=== PATIENT | male | born 1975 | race Caucasian/White ===

== ENCOUNTER 2018-10-13 17:52 | Inpatient (IN) | payer MEDICARE, MEDICAID ==
[~2018-10-13] VITALS: Ht 154.9 cm; Wt 79.5 kg
[~2018-10-13 17:52] MED LIST: DIVA500T15; FENO135C4; FLUV100T3; FLUV50TA3; HYDR-3729 PO; LISI10TA2; METF500T8; RISP0.5T3; SIMV5TAB6; SITA100T12; SULF1TAB38 PO; TOPI50TA13; TRAZ-190
--- OUTSIDE RECORDS SUMMARY | 2018-10-13 17:55 | XMS REPORT | Continuity of Care Document ---
Author Author [facility] of [facility] Address Unknown Phone Unavailable Allergies There is no data. Medications There is no data. 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 Results There is no data. Encounters ACCT No. Visit Date/Time Discharge Status Pt. Type Provider Facility Loc./Unit Complaint [id number] 11/07/2014 15:35:00 11/07/2014 23:59:59 [facility] Outpatient BRIAN CASTAÑEDA APRN [id number] 09/16/2014 11:22:00 09/16/2014 23:59:59 [facility] Outpatient BRIAN CASTAÑEDA APRN
[2018-10-13] MEDS ORDERED: PIPERACILLIN SODIUM/TAZOBACTAM 4.5 GM in NS (IVPB) 100 ML IV ONE (18:15)
[2018-10-13] MEDS ORDERED: NS IV 1000 ML 2,000 ML IV ONE (18:15)
[2018-10-13] MEDS ORDERED: ASPIRIN 81 MG CHEW (CHILDREN'S ASA) PO ONE (18:15)
--- NOTE | 2018-10-13 18:22 | ED General ---
General Stated Complaint: LETHARGIC/WEAK Source of Information: Patient, Caregiver, Old Records Exam Limitations: Physical Impairments History of Present Illness Date Seen by Provider: Oct 13, 2018 Time Seen by Provider: 18:00 Initial Comments The patient presents to ER by private conveyance with his house caregiver because they noticed today he was not acting himself is been very tired and wanting to sleep all day and at dinner was dropping his utensils. He's not been acting sick lately nor there any sick contacts in the home where he lives. He does have a history of being functionally destined nonverbal. The has a guardian who the caregivers trying to contact. They deny that he's been having any nausea vomiting diarrhea fevers chills sweats pain of any sort or decreased appetite until this evening. He's not been having a cough, runny nose rash or other concern that they're aware of other than his acting weak and tired. He has a history of hypertension and some psychiatric medications that he takes. They state he's been taking his medications appropriately since they deliver them to him. No known family history as they don't do anything about his family. No history of heart attack, stroke, or recent antibiotic use. They noticed the last year he's lost some weight but they are not sure how much. Last bowel movement was just prior to arrival. Allergies and Home Medications Allergies Coded Allergies: No Known Drug Allergies (Unverified , 10/03/11) Home Medications Hydrocodone/Acetaminophen 1 Each Tablet, 1-2 EACH PO Q4H Prescribed by: MARIANNE REYES on 05/26/16 1002 Patient Home Medication List Home Medication List Reviewed: Yes Review of Systems Review of Systems Constitutional: see HPI (history of present illness given by caregivers as the patient is nonverbal); No chills, No diaphoresis, No fever, No malaise EENTM: No ear discharge, No ear pain, No eye pain, No tearing, No dental problems, No hoarseness, No nose congestion, No throat pain Respiratory: No cough, No short of breath, No wheezing Cardiovascular: No chest pain, No edema, No Hx of Intervention, No syncope, No vascular heart diseas Gastrointestinal: No abdominal pain, No constipation, No diarrhea, No vomiting Genitourinary: No dysuria, No frequency, No hematuria Musculoskeletal: No back pain, No joint pain Skin: No pruritus, No rash Psychiatric/Neurological: Denies Headache, Denies Numbness Past Mfjmtmu-Toevur-Fqsdjr Hx Patient Social History Alcohol Use: Denies Use Recreational Drug Use: No Smoking Status: Never a Smoker Recent Foreign Travel: No Contact w/Someone Who Travel: No Seasonal Allergies Seasonal Allergies: No Past Medical History Gall Bladder Disease Hearing Impairment: Deaf Physical Exam-Suspected Sepsis Physical Exam Vital Signs Vital Signs - First Documented 10/13/18 18:04 Temp 95.9 Pulse 57 Resp 20 B/P (MAP) 82/53 (63) Pulse Ox 94 O2 Delivery Room Air Capillary Refill : Height, Weight, BMI Height: 5'1.00" Weight: 290lbs. 0.0oz. 131.952025au; 48.25 BMI Method:Stated General Appearance: Mild Distress, Obese Eyes: Bilateral Eye Normal Inspection, Bilateral Eye PERRL, Bilateral Eye EOMI HEENT: PERRL/EOMI, TMs Normal, Normal ENT Inspection, Pharynx Normal, Moist Mucous Membranes Neck: Full Range of Motion, Normal Inspection, Non Tender Respiratory: Chest Non Tender, Lungs Clear, Normal Breath Sounds, No Accessory Muscle Use, No Respiratory Distress Cardiovascular: Regular Rate, Rhythm, No Edema, Normal Peripheral Pulses Gastrointestinal: Normal Bowel Sounds, No Organomegaly, Non Tender, Soft Extremity: Normal Capillary Refill, Normal Inspection Neurologic/Psychiatric: Alert, Normal Mood/Affect (placid), Other (nonverbal but cooperative) Skin: normal color, warm/dry Focused Exam Lactate Level 10/13/18 18:37: Lactic Acid Level 0.86 Lactic Acid Level Laboratory Tests Test 10/13/18 18:37 Lactic Acid Level 0.86 MMOL/L (0.50-2.00) Progress/Results/Core Measures Suspected Sepsis SIRS Temperature: Pulse: Respiratory Rate: Laboratory Tests 10/13/18 18:37: White Blood Count 9.8 Blood Pressure / Mean: 10/13/18 18:37: Lactic Acid Level 0.86 Laboratory Tests 10/13/18 18:37: Creatinine 0.75, INR Comment 1.0, Platelet Count 163, Total Bilirubin 0.2 Results/Orders Lab Results Laboratory Tests Test 10/13/18 18:37 10/13/18 18:52 10/13/18 19:41 Range/Units White Blood Count 9.8 4.3-11.0 10^3/uL Red Blood Count 4.18 L 4.35-5.85 10^6/uL Hemoglobin 13.1 L 13.3-17.7 G/DL Hematocrit 38 L 40-54 % Mean Corpuscular Volume 92 80-99 FL Mean Corpuscular Hemoglobin 31 25-34 PG Mean Corpuscular Hemoglobin Concent 34 32-36 G/DL Red Cell Distribution Width 12.1 10.0-14.5 % Platelet Count 163 130-400 10^3/uL Mean Platelet Volume 9.8 7.4-10.4 FL Neutrophils (%) (Auto) 44 42-75 % Lymphocytes (%) (Auto) 43 12-44 % Monocytes (%) (Auto) 7 0-12 % Eosinophils (%) (Auto) 7 0-10 % Basophils (%) (Auto) 1 0-10 % Neutrophils # (Auto) 4.3 1.8-7.8 X 10^3 Lymphocytes # (Auto) 4.2 H 1.0-4.0 X 10^3 Monocytes # (Auto) 0.7 0.0-1.0 X 10^3 Eosinophils # (Auto) 0.7 H 0.0-0.3 10^3/uL Basophils # (Auto) 0.1 0.0-0.1 10^3/uL Prothrombin Time 13.3 12.2-14.7 SEC INR Comment 1.0 0.8-1.4 Activated Partial Thromboplast Time 34 24-35 SEC Sodium Level 139 135-145 MMOL/L Potassium Level 3.9 3.6-5.0 MMOL/L Chloride Level 110 H 98-107 MMOL/L Carbon Dioxide Level 21 21-32 MMOL/L Anion Gap 8 5-14 MMOL/L Blood Urea Nitrogen 23 H 7-18 MG/DL Creatinine 0.75 0.60-1.30 MG/DL Estimat Glomerular Filtration Rate > 60 BUN/Creatinine Ratio 31 Glucose Level 129 H 70-105 MG/DL Lactic Acid Level 0.86 0.50-2.00 MMOL/L Calcium Level 8.7 8.5-10.1 MG/DL Corrected Calcium 9.0 8.5-10.1 MG/DL Magnesium Level 2.0 1.8-2.4 MG/DL Total Bilirubin 0.2 0.1-1.0 MG/DL Aspartate Amino Transf (AST/SGOT) 23 5-34 U/L Alanine Aminotransferase (ALT/SGPT) 24 0-55 U/L Alkaline Phosphatase 66 40-136 U/L Myoglobin 28.8 10.0-92.0 NG/ML Troponin I < 0.30 <0.30 NG/ML Total Protein 6.1 L 6.4-8.2 GM/DL Albumin 3.6 3.2-4.5 GM/DL Glucometer 104 70-110 MG/DL Urine Color YELLOW Urine Clarity CLEAR Urine pH 6.5 5-9 Urine Specific [place] 1.010 L 1.016-1.022 Urine Protein NEGATIVE NEGATIVE Urine Glucose (UA) NEGATIVE NEGATIVE Urine Ketones NEGATIVE NEGATIVE Urine Nitrite NEGATIVE NEGATIVE Urine Bilirubin NEGATIVE NEGATIVE Urine Urobilinogen NORMAL NORMAL MG/DL Urine Leukocyte Esterase NEGATIVE NEGATIVE Urine RBC (Auto) NEGATIVE NEGATIVE Urine RBC NONE /HPF Urine WBC NONE /HPF Urine Crystals NONE /LPF Urine Bacteria NEGATIVE /HPF Urine Casts NONE /LPF Urine Mucus NEGATIVE /LPF Urine Culture Indicated NO Micro Results Microbiology 10/13/18 Influenza Types A,B Antigen (PEPITO) - Final, Complete My Orders Orders - OSMAN AGUIRRE Cbc With Automated Diff (10/13/18 18:09) Comprehensive Metabolic Panel (10/13/18 18:09) Blood Culture (10/13/18 18:09) Sputum Culture (10/13/18 18:09) Urinalysis (10/13/18 18:09) Urine Culture (10/13/18 18:09) Protime With Inr (10/13/18 18:09) Partial Thromboplastin Time (10/13/18 18:09) Saline Lock/Iv-Start (10/13/18 18:09) Saline Lock/Iv-Start (10/13/18 18:09) Vital Signs Adult Sepsis Patie Q15M (10/13/18 18:09) O2 (10/13/18 18:09) Remove Rings In Anticipation O (10/13/18 18:09) Lactic Acid Analyzer (10/13/18 18:09) Influenza A And B Antigens (10/13/18 18:09) Ns Iv 1000 Ml (Sodium Chloride 0.9%) (10/13/18 18:15) Piperacillin Sodium/Tazobactam (Zosyn Vi (10/13/18 18:15) Ekg Tracing (10/13/18 18:09) Monitor-Rhythm Ecg Trace Only (10/13/18 18:09) Aspirin Chewable Tablet (Baby Aspirin Ch (10/13/18 18:15) Chest Pa/Lat (2 View) (10/13/18 18:09) Accucheck Stat ONCE (10/13/18 18:50) Cardiac Profile 1 (10/13/18 18:37) Magnesium (10/13/18 18:37) Myoglobin Serum (10/13/18 18:37) Abdomen/Kub 1view (10/13/18 20:16) Medications Given in ED Current Medications Medications Dose Ordered Sig/Timbo Route Start Time Stop Time Status Last Admin Dose Admin Aspirin 324 mg ONCE ONCE PO 10/13/18 18:15 10/13/18 18:17 DC 10/13/18 18:30 324 MG Piperacillin Sod/ Tazobactam Sod 4.5 gm/Sodium Chloride 100 ml @ 200 mls/hr ONCE ONCE IV 10/13/18 18:15 10/13/18 18:44 DC 10/13/18 19:59 200 MLS/HR Sodium Chloride 2,000 ml @ 2,000 mls/hr ONCE ONCE IV 10/13/18 18:15 10/13/18 19:14 DC 10/13/18 18:30 2,000 MLS/HR Vital Signs/I&O 10/13/18 10/13/18 18:04 20:03 Temp 95.9 95.4 Pulse 57 44 Resp 20 16 B/P (MAP) 82/53 (63) 92/60 Pulse Ox 94 95 O2 Delivery Room Air Room Air Capillary Refill : Progress Note #1: Time: 18:22 Progress Note Not much history to go on; the patient is found to be hypotensive initially with a systolic of 85 however blood pressure was noted to be 129/96 after obtaining flu swab and IVs which irritated the patient. His heart rates was in the 50s and he is not on a beta richie, digoxin etc. so it could be artificial hypotension. He got up and walked over got in the chair to go to radiology with one-person standby assist. His temperature is low sonwe are still going to treat it like sepsis until we see otherwise. He has not started his IV fluids yet so when he gets back from radiology we will recheck his blood pressure couple times and if it's not hypotensive then this would not represent shock. We 'll also considering possibility of cardiac so we obtain an EKG we'll give him 324 mg of aspirin and get a troponin. He has not intimated any kind of chest pain rather it was merely the presence of hypotension with no good history that prompted this workup. Using an ideal body weight of 150 pounds and put him right at 2 L of saline for 30 mils per kilogram. He has no edema, JVD or orthopnea and clinically he does appear to be mildly dry but not excessively so. 2016 Dr. 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 His medical reconciliation does not include any insulin. No other surgical history. No smoking or alcohol use. Progress Note #2: Time: 18:35 Progress Note Repeat blood pressure still demonstrate hypotension. His EKG today looks okay but he does have a history of possible atrial flutter seen on an EKG couple years ago. He showing no neurologic symptoms but is difficult to do a complete examination given his mutism. He has no drooping of his face or difficulty with one side of his body. The other. Strength and motor are equal bilateral. Progress Note #3: Time: 19:27 Progress Note Bedside blood sugar unremarkable 104. Heart rate still remains low in the mid 40s but his blood pressure has improved significantly by about 20 mmHg systolic the right now 107/67. Could be a cardiac source of his hypotension. Troponin and other lab work unrevealing. By the time he gets his first 2 L in if he still not able to produce a urine then we'll collect a straight catheter specimen. Progress Note #4: Time: 20:13 Progress Note Patient's blood pressure is 116/93 and dental responded to fluid bolus challenge. He doesn't appear to be in any kind of distress right now on reexamination. On focused exam at this time is markedly improved. The I do think it be ugalde to hold onto him in the hospital do some further workup to find out why he is having inappropriate bradycardia and hypertension if it was from an infectious source or if there is a cardiogenic source of his problems today. Would also consider the possibility he may have ingested something but I as of yet have not been able to discern by history what that might be. I would continue the antibiotics until we were certain there is no infectious source of his symptoms. He does have a history of constipation so we will obtain a KUB 1 view just to see if he has a large stool load. ECG Initial ECG Impression Date: Oct 13, 2018 Initial ECG Impression Time: 18:09 Initial ECG Rate: 70 Initial ECG Rhythm: Normal Sinus Initial ECG Intervals: Normal Initial ECG Impression: Normal, Nonspecific Changes Initial ECG Comparisson: Changed Comment Previous EKG from 2016 may have shown atrial flutter versus artifact. Today he is in a normal sinus rhythm without any ST changes. Diagnostic Imaging Diagonstic Imaging: Xray Plain Films/CT/US/NM/MRI: chest (2v) Comments [facility]. [place], [place] NAME: SOREN BRAND [facility] REC#: [id number] PT STATUS: REG ER : 1975 PHYSICIAN: OSMAN AGUIRRE MD ADMIT DATE: 10/13/18/ER Draft Date of Exam:10/13/18 CHEST PA/LAT (2 VIEW) INDICATION: Lethargic. COMPARISON: 09/13/2016. TECHNIQUE: Two radiographs of the chest dated October 13, 2018. FINDINGS: The cardiac silhouette is within normal limits in size. No significant pulmonary vascular congestion. The lungs are clear of focal pulmonary opacity. No pleural effusion. No pneumothorax. Surgical clips are within the right upper quadrant of the abdomen. No acute osseous abnormality. IMPRESSION: Stable examination without acute cardiopulmonary abnormality. Dictated on workstation # [id number] Dict: 10/13/181945 Trans: 10/13/181950 [facility] [id number] Interpreted by: TIARA CORTEZ MD Electronically signed by: Reviewed: Reviewed by Me Diagonstic Imaging: Xray Plain Films/CT/US/NM/MRI: abdomen (1 view KUB) Comments Unremarkable bowel gas pattern. Reviewed: Reviewed by Me Departure Communication (Admissions) Time/Spoke to Admitting Phy: 20:30 Dr Cortes; discussed case lab EKG troponin and x-rays. She would like the patient on cardiac stepdown with telemetry and she agrees to accept him. Time/Spoke to Consulting Phy: 20:35 Dr. Schafer; discussed case lab imaging findings he agrees to consult. Impression Primary Impression: Hypotension Qualified Codes: I95.0 - Idiopathic hypotension Additional Impression: Bradycardia with 41-50 beats per minute Disposition: ADMITTED INPATIENT Condition: Stable Admissions Decision to Admit Reason: Admit from ER (General) Decision to Admit/Date: Oct 13, 2018 Time/Decision to Admit Time: 20:30 Departure-Patient Inst. Referrals: ROSEMARIE HURD DO (PCP/Family) Primary Care Physician Copy Copies To 1: ROSEMARIE HURD TITUS J Oct 13, 2018 18:22
[2018-10-13 18:45] LABS: BASOPHILS # (AUTO) 0.1 10^3/uL (0.0-0.1); BASOPHILS % (AUTO) 1 % (0-10); EOSINOPHILS # (AUTO) 0.7 10^3/uL (0.0-0.3); EOSINOPHILS % (AUTO) 7 % (0-10); HEMATOCRIT 38 % (40-54); HEMOGLOBIN 13.1 G/DL (13.3-17.7); LYMPHOCYTES # (AUTO) 4.2 X 10^3 (1.0-4.0); LYMPHOCYTES % (AUTO) 43 % (12-44); MEAN CORPUSCULAR HEMOGLOBIN 31 PG (25-34); MEAN CORPUSCULAR HGB CONC 34 G/DL (32-36); MEAN CORPUSCULAR VOLUME 92 FL (80-99); MEAN PLATELET VOLUME 9.8 FL (7.4-10.4); MONOCYTES # (AUTO) 0.7 X 10^3 (0.0-1.0); MONOCYTES % (AUTO) 7 % (0-12); NEUTROPHILS # (AUTO) 4.3 X 10^3 (1.8-7.8); NEUTROPHILS % (AUTO) 44 % (42-75); PLATELET COUNT 163 10^3/uL (130-400); RED BLOOD COUNT 4.18 10^6/uL (4.35-5.85); RED CELL DISTRIBUTION WIDTH 12.1 % (10.0-14.5); WHITE BLOOD COUNT 9.8 10^3/uL (4.3-11.0)
[2018-10-13 19:06] LABS: ALANINE AMINOTRANSFERASE 24 U/L (0-55); ALBUMIN 3.6 GM/DL (3.2-4.5); ALKALINE PHOSPHATASE 66 U/L (40-136); BILIRUBIN,TOTAL 0.2 MG/DL (0.1-1.0); BUN/CREATININE RATIO 31; CALCIUM 8.7 MG/DL (8.5-10.1); CARBON DIOXIDE 21 MMOL/L (21-32); CHLORIDE 110 MMOL/L (98-107); CREATININE SERUM 0.75 MG/DL (0.60-1.30); GFR ESTIMATED > 60; GLUCOSE 129 MG/DL (70-105); POTASSIUM 3.9 MMOL/L (3.6-5.0); SODIUM 139 MMOL/L (135-145); TOTAL PROTEIN 6.1 GM/DL (6.4-8.2)
[2018-10-13 19:10] LABS: PROTHROMBIN TIME PATIENT 13.3 SEC (12.2-14.7)
[2018-10-13 19:13] LABS: MYOGLOBIN SERUM 28.8 NG/ML (10.0-92.0)
--- NOTE | 2018-10-13 19:52 | Diagnostic Imaging Report ---
INDICATION: Lethargic. COMPARISON: 09/13/2016. TECHNIQUE: Two radiographs of the chest dated October 13, 2018. FINDINGS: The cardiac silhouette is within normal limits in size. No significant pulmonary vascular congestion. The lungs are clear of focal pulmonary opacity. No pleural effusion. No pneumothorax. Surgical clips are within the right upper quadrant of the abdomen. No acute osseous abnormality. IMPRESSION: Stable examination without acute cardiopulmonary abnormality. Dictated by: Dictated on workstation # [id number]
[2018-10-13 20:03] LABS: BACTERIA,URINE NEGATIVE /HPF; BILIRUBIN,URINE NEGATIVE (NEGATIVE); CLARITY,URINE CLEAR; COLOR,URINE YELLOW; GLUCOSE, URINE (UA) NEGATIVE (NEGATIVE); KETONES,URINE NEGATIVE (NEGATIVE); LEUKOCYTE ESTERASE ,URINE NEGATIVE (NEGATIVE); NITRITE,URINE NEGATIVE (NEGATIVE); PH,URINE 6.5 (5-9); PROTEIN,URINE NEGATIVE (NEGATIVE); UROBILINOGEN,URINE NORMAL (NORMAL)
--- OUTSIDE RECORDS SUMMARY | 2018-10-13 21:14 | XMS REPORT | Continuity of Care Document ---
Author Author [facility] Address Unknown Phone Unavailable Allergies There [...] BRIAN CASTAÑEDA APRN V58.69 MEDICATION HIGH RISK Procedures There is no data. Results There is no data. Encounters ACCT No. Visit Date/Time Discharge Status Pt. Type Provider Facility Loc./Unit Complaint [id number] 11/07/2014 15:35:00 11/07/2014 23:59:59 [facility] Outpatient BRIAN CASTAÑEDA APRN [id number] 09/16/2014 11:22:00 09/16/2014 23:59:59 [facility] Outpatient BRIAN CASTAÑEDA APRN
[2018-10-13 22:08] VITALS: BP 124/94
[2018-10-13] MEDS ORDERED: IBUPROFEN 800 MG (MOTRIN) TAB PO PRN (22:30)
[2018-10-13] MEDS ORDERED: ACETAMINOPHEN 500 MG TAB (TYLENOL) PO PRN (22:30)
[2018-10-13] MEDS ORDERED: ONDANSETRON 4 MG/2 ML (SDV) Z0FRAN IV PRN (22:30)
[2018-10-13] MEDS: NS IV 1000 ML 1,000 ML IV SCH (22:43)
[2018-10-13 23:00] VITALS: BP 107/80
--- NOTE | 2018-10-13 23:01 | Diagnostic Imaging Report ---
INDICATION: Lethargic COMPARISON: None available. TECHNIQUE: Single radiograph of the abdomen dated 10/13/2018. FINDINGS: Surgical clips are present within the right upper quadrant of the abdomen. Gas and stool is identified throughout the colon. No dilated loops of small bowel. No differential air-fluid levels. No free air. [place] left curvature of the spine. No acute osseous abnormality. IMPRESSION: No acute abnormality. Dictated by: Dictated on workstation # [id number]
[2018-10-14] VITALS: BP 106/55
[2018-10-14] MEDS ORDERED: diphenhydrAMINE 25 MG TAB (BENADRYL) PO ONE ×2 (01:49→02:00)
[2018-10-14] MEDS ORDERED: PIPERACILLIN/TAZO 4.5 GM VIAL (ZOSYN) IV ONE (01:58)
[2018-10-14] MEDS ORDERED: NS (IVPB) 100 ML ONE (01:58)
[2018-10-14] MEDS: NS IV 1000 ML 1,000 ML IV SCH ×2 (01:59→05:58)
[2018-10-14] MEDS: PIPERACILLIN SODIUM/TAZOBACTAM 4.5 GM in NS (IVPB) 100 ML IV SCH ×2 (02:10→10:24)
[2018-10-14 04:00] VITALS: BP 109/61
[2018-10-14 04:11] LABS: BASOPHILS % (AUTO) 1 % (0-10); EOSINOPHILS # (AUTO) 0.6 10^3/uL (0.0-0.3); EOSINOPHILS % (AUTO) 7 % (0-10); HEMATOCRIT 35 % (40-54); HEMOGLOBIN 11.8 G/DL (13.3-17.7); LYMPHOCYTES # (AUTO) 3.6 X 10^3 (1.0-4.0); LYMPHOCYTES % (AUTO) 42 % (12-44); MEAN CORPUSCULAR HEMOGLOBIN 31 PG (25-34); MEAN CORPUSCULAR HGB CONC 33 G/DL (32-36); MEAN CORPUSCULAR VOLUME 93 FL (80-99); MEAN PLATELET VOLUME 9.9 FL (7.4-10.4); MONOCYTES % (AUTO) 11 % (0-12); NEUTROPHILS # (AUTO) 3.6 X 10^3 (1.8-7.8); NEUTROPHILS % (AUTO) 40 % (42-75); PLATELET COUNT 121 10^3/uL (130-400); RED BLOOD COUNT 3.78 10^6/uL (4.35-5.85); WHITE BLOOD COUNT 8.8 10^3/uL (4.3-11.0)
[2018-10-14 04:44] LABS: BUN/CREATININE RATIO 26; CALCIUM 8.2 MG/DL (8.5-10.1); CARBON DIOXIDE 19 MMOL/L (21-32); CHLORIDE 118 MMOL/L (98-107); GFR ESTIMATED > 60; GLUCOSE 92 MG/DL (70-105); SODIUM 145 MMOL/L (135-145)
[2018-10-14 07:00] VITALS: BP_SYST 114; BP_SYST 91; BP_DIAS 54; BP_DIAS 63
[2018-10-14 08:00] VITALS: BP 114/54
--- NOTE | 2018-10-14 09:59 | Consultation-Cardiology ---
HPI-Cardiology Cardiology Consultation Date of Consultation 10/14/18 Date of Admission Time Seen by Provider: 09:54 Indication: bradycardia, hypotension HPI 43 years old gentleman with history of hypertension, hyperlipidemia, patient suffered from deafness, unable to provide any history. It was reported by his caregiver that he has been tired and having no energy, did not eat well. Brought to the hospital and noted to be borderline hypotensive. He is on lisinopril as an outpatient and he received yesterday morning. Overnight he continued to have borderline hypotension, heart rate is in the 50s. Laying down in bed, did not respond properly, unable to provide any history. Home Medications & Allergies Allergies: Coded Allergies: No Known Drug Allergies (Unverified , 10/13/18) Home Medication List Reviewed: Yes SNF-Vfompn-Rfklub Hx Patient Social History Marital Status: single Employed/Student: unemployed Alcohol Use: Denies Use Recreational Drug Use: No Smoking Status: Never a Smoker Recent Foreign Travel: No Recent Infectious Disease Expo: No Physical Abuse Screen: No Sexual Abuse: No Immunizations Up To Date Tetanus Booster (TDap): Unknown Date of Influenza Vaccine: Jul 23, 2018 Past Medical History past medical history as discussed below Review of Systems Constitutional: malaise, weakness, other (unable to provide history due to his current condition) Respiratory: No see HPI, No cough, No dyspnea on exertion, No hemoptysis, No orthopnea, No phlegm, No short of breath, No stridor, No wheezing, No other Cardiovascular: No see HPI, No chest pain, No edema, No Hx of Intervention, No palpitations, No syncope, No vascular heart diseas, No other Gastrointestinal: No RUQ, No LUQ, No RLQ, No LLQ, No see HPI, No abdominal pain , No constipation, No diarrhea, No dysphagia, No hematemesis, No heartburn, No jaundice, No loss of appetite, No melena, No nausea, No vomiting, No other Reviewed Test Results Reviewed Test Results Lab Laboratory Tests Test 10/13/18 18:37 10/13/18 18:52 10/13/18 19:41 10/14/18 03:49 Range/Units White Blood Count 9.8 8.8 4.3-11.0 10^3/uL Red Blood Count 4.18 L 3.78 L 4.35-5.85 10^6/uL Hemoglobin 13.1 L 11.8 L 13.3-17.7 G/DL Hematocrit 38 L 35 L 40-54 % Mean Corpuscular Volume 92 93 80-99 FL Mean Corpuscular Hemoglobin 31 31 25-34 PG Mean Corpuscular Hemoglobin Concent 34 33 32-36 G/DL Red Cell Distribution Width 12.1 12.0 10.0-14.5 % Platelet Count 163 121 L 130-400 10^3/uL Mean Platelet Volume 9.8 9.9 7.4-10.4 FL Neutrophils (%) (Auto) 44 40 L 42-75 % Lymphocytes (%) (Auto) 43 42 12-44 % Monocytes (%) (Auto) 7 11 0-12 % Eosinophils (%) (Auto) 7 7 0-10 % Basophils (%) (Auto) 1 1 0-10 % Neutrophils # (Auto) 4.3 3.6 1.8-7.8 X 10^3 Lymphocytes # (Auto) 4.2 H 3.6 1.0-4.0 X 10^3 Monocytes # (Auto) 0.7 1.0 0.0-1.0 X 10^3 Eosinophils # (Auto) 0.7 H 0.6 H 0.0-0.3 10^3/uL Basophils # (Auto) 0.1 0.0 0.0-0.1 10^3/uL Prothrombin Time 13.3 12.2-14.7 SEC INR Comment 1.0 0.8-1.4 Activated Partial Thromboplast Time 34 24-35 SEC Sodium Level 139 145 135-145 MMOL/L Potassium Level 3.9 4.0 3.6-5.0 MMOL/L Chloride Level 110 H 118 H 98-107 MMOL/L Carbon Dioxide Level 21 19 L 21-32 MMOL/L Anion Gap 8 8 5-14 MMOL/L Blood Urea Nitrogen 23 H 18 7-18 MG/DL Creatinine 0.75 0.70 0.60-1.30 MG/DL Estimat Glomerular Filtration Rate > 60 > 60 BUN/Creatinine Ratio 31 26 Glucose Level 129 H 92 70-105 MG/DL Lactic Acid Level 0.86 0.50-2.00 MMOL/L Calcium Level 8.7 8.2 L 8.5-10.1 MG/DL Corrected Calcium 9.0 8.5-10.1 MG/DL Magnesium Level 2.0 1.8-2.4 MG/DL Total Bilirubin 0.2 0.1-1.0 MG/DL Aspartate Amino Transf (AST/SGOT) 23 5-34 U/L Alanine Aminotransferase (ALT/SGPT) 24 0-55 U/L Alkaline Phosphatase 66 40-136 U/L Myoglobin 28.8 10.0-92.0 NG/ML Troponin I < 0.30 < 0.30 <0.30 NG/ML Total Protein 6.1 L 6.4-8.2 GM/DL Albumin 3.6 3.2-4.5 GM/DL Glucometer 104 70-110 MG/DL Urine Color YELLOW Urine Clarity CLEAR Urine pH 6.5 5-9 Urine Specific [place] 1.010 L 1.016-1.022 Urine Protein NEGATIVE NEGATIVE Urine Glucose (UA) NEGATIVE NEGATIVE Urine Ketones NEGATIVE NEGATIVE Urine Nitrite NEGATIVE NEGATIVE Urine Bilirubin NEGATIVE NEGATIVE Urine Urobilinogen NORMAL NORMAL MG/DL Urine Leukocyte Esterase NEGATIVE NEGATIVE Urine RBC (Auto) NEGATIVE NEGATIVE Urine RBC NONE /HPF Urine WBC NONE /HPF Urine Crystals NONE /LPF Urine Bacteria NEGATIVE /HPF Urine Casts NONE /LPF Urine Mucus NEGATIVE /LPF Urine Culture Indicated NO Physical Exam Vital Signs Vital Signs - First Documented Capillary Refill : Less Than 3 Seconds Height, Weight, BMI Height: 5'1.00" Weight: 175lbs. 6.0oz. 79.792127wk; 32.4 BMI Method:Stated General Appearance: No Apparent Distress, WD/WN HEENT: PERRL/EOMI, TMs Normal, Normal ENT Inspection, Pharynx Normal Neck: Full Range of Motion, Normal Inspection Respiratory: Chest Non Tender, Lungs Clear, Normal Breath Sounds, No Accessory Muscle Use, No Respiratory Distress; No Crackles, No Decreased Breath Sounds, No Expiration, No Inspiration, No Pleural Rub, No Rales, No Respiratory Distress , No Rhonci, No Stridor, No Wheezing, No Other Cardiovascular: Regular Rate, Rhythm, No Edema, No Gallop, No JVD, No Murmur, Normal Peripheral Pulses Gastrointestinal: Normal Bowel Sounds, No Organomegaly Back: Normal Inspection, No CVA Tenderness Extremity: Normal Capillary Refill, Normal Inspection Neurologic/Psychiatric: Alert, Other (unable to provide any history) Skin: Normal Color, Warm/Dry A/P-Cardiology Admission Diagnosis Hypotension Sinus bradycardia Hyperlipidemia Depression Assessment/Plan Hypotension, patient has been on lisinopril, I will discontinue lisinopril for now and monitor blood pressure, received IV fluid and blood pressure is better at this time Sinus bradycardia, asymptomatic, limited exercise ability. Continue to monitor as an outpatient. Hyperlipidemia maintained on simvastatin which might be part spading in his muscle weakness. I will discontinue statin and monitor Depression, anxiety, followed and managed by primary care physician Diabetes mellitus, followed and managed by primary care physician division Generalized weakness and loss of energy probably secondary to his bradycardia and hypotension. At this time it is better. Continue to monitor Deafness, unable to communicate. From cardiology standpoint patient can go back to his assisted facility and followed as an outpatient Clinical Quality Measures DVT/VTE Risk/Contraindication: Risk Factor Score Per Nursin RFS Level Per Nursing on Admit: 2=Moderate NICOLLE ALVAREZ MD Oct 14, 2018 09:59
[2018-10-14 12:09] VITALS: BP 121/62
--- NOTE | 2018-10-14 12:17 | Short Stay Summary-Hospitalist ---
History of Present Illness HPI/Chief Complaint CC: Hypotension with bradycardia HPI: This is a 43-year-old white male severely disabled with mental retardation and deafness of Dr. Ray who is cared for by a caregiver who presents to the hospital with hypotension and bradycardia and not feeling well. He underwent a complete septic workup revealing no evidence of bacterial infection but he was given aggressive IV fluids with improvement of hypotension of systolic of 80 monitored in the ICU overnight and cardiology was consulted. Bradycardia was not significant enough for any type of pursuant of sick sinus syndrome and due to bedridden state there was no indication for aggressive evaluation for that. Lisinopril will be discontinued along with statin for hypotension and muscle weakness symptoms that he had on admission. He has been approved for discharge today. Source: RN/MD, caregiver Exam Limitations: physical impairment Date Seen 10/14/18 Time Seen by a Provider: 11:45 Attending Physician Pita Cortes DO PCP Marcus Ray DO Referring Physician Date of Admission Oct 13, 2018 at 21:00 Home Medications & Allergies Home Medications Reviewed patient Home Medication Reconciliation performed by pharmacy medication reconciliations costume technician and/or nursing. Patients Allergies have been reviewed. Allergies Allergies Coded Allergies No Known Drug Allergies ([id number]/22/18) Past Hntptux-Xuqyuw-Ehopem Hx Past Med/Social Hx: Reviewed Nursing Past Med/Soc Hx, Reviewed and Corrections made Patient Social History Marrital Status: single Employed/Student: unemployed Alcohol Use: Denies Use Recreational Drug Use: No Smoking Status: Never a Smoker Physical Abuse Screen: No Sexual Abuse: No Recent Foreign Travel: No Contact w/other who traveled: No Recent Infectious Disease Expo: No Immunizations Up To Date Tetanus Booster (TDap): Unknown Pediatric: Yes Date of Influenza Vaccine: Jul 23, 2018 Seasonal Allergies Seasonal Allergies: No Past Medical History Gastrointestinal: Chronic Constipation, Gall Bladder Disease Hearing Impairment: Deaf History of Blood Disorders: No Adverse Reaction to Blood Murry: No Review of Systems ROS-Unable to Obtain: Mental retardation and deafness Constitutional: see HPI Physical Exam Physical Exam Vital Signs Vital Signs - First Documented Capillary Refill : Less Than 3 Seconds Height, Weight, BMI Height: 5'1.00" Weight: 175lbs. 6.0oz. [id number]; 32.4 BMI Method:Stated General Appearance: No Apparent Distress, WD/WN, Chronically ill Eyes: Bilateral Eye Normal Inspection, Bilateral Eye PERRL HEENT: PERRL/EOMI, Normal ENT Inspection, Pharynx Normal, Other (deafness) Neck: Full Range of Motion, Normal Inspection, Non Tender, Supple, Carotid Bruit Respiratory: Chest Non Tender, Lungs Clear, Normal Breath Sounds, No Accessory Muscle Use, No Respiratory Distress Cardiovascular: Regular Rate, Rhythm, No Edema, No Gallop, No JVD, No Murmur, Normal Peripheral Pulses Gastrointestinal: Normal Bowel Sounds, No Organomegaly, No Pulsatile Mass, Non Tender, Soft Back: Normal Inspection, No CVA Tenderness, No Vertebral Tenderness Extremity: Normal Capillary Refill, Normal Inspection, Normal Range of Motion, Non Tender, No Calf Tenderness, No Pedal Edema Neurologic/Psychiatric: Alert, Disoriented, Motor Weakness, Sensory Deficit Skin: Normal Color, Warm/Dry Lymphatic: No Adenopathy Results Results/Procedures Labs Laboratory Tests 10/13/18 18:37 10/14/18 03:49 Patient resulted labs reviewed. Short Stay Diagnosis Discharge Diagnosis-Short Stay Admission Diagnosis Assessment: Hypotension without sepsis source due to lisinopril Bradycardia Muscle weakness discontinued statin therapy Mental retardation Deafness Final Discharge Diagnosis Assessment: Hypotension without sepsis source due to lisinopril Bradycardia Muscle weakness discontinued statin therapy Mental retardation Deafness Conclusion Plan Plan: Discontinuation of lisinopril and statin Discharge home Diagnosis/Problems Diagnosis/Problems (1) Hypotension Status: Acute Qualifiers: Qualified Codes: I95.0 - Idiopathic hypotension (2) Bradycardia with 41-50 beats per minute Status: Acute (3) Deafness Status: Chronic Qualifiers: Qualified Codes: H91.93 - Unspecified hearing loss, bilateral (4) Mental developmental delay Status: Chronic Clinical Quality Measures DVT/VTE Risk/Contraindication: Risk Factor Score Per Nursin RFS Level Per Nursing on Admit: 2=Moderate PITA CORTES DO Oct 14, 2018 12:17
[2018-10-15] MEDS ORDERED: metFORMIN XR 500 MG (GLUCOPHAGE XR) TAB PO SCH (09:00)
[2018-10-15] MEDS ORDERED: traZODone 100 MG (DESYREL) TAB PO SCH (09:00)
[2018-10-15] MEDS ORDERED: DIVALPROEX EXT RELEASE 500 MG (DEPAKOTE ER) TAB PO SCH (09:00)
== END 2018-10-14 13:00 | disposition home or self-care (01) | DRG 312 ==
LOC: EDUNIT# 17:52 → ER 17:53 → ICU 21:00
PROVIDERS: ADMIT Internal Medicine; ATTEND Internal Medicine
DX: I95.2 Hypotension due to drugs (principal); T46.4X5A Adverse effect of angiotensin-converting-enzyme inhibitors, initial encounter; R00.1 Bradycardia, unspecified; M62.81 Muscle weakness (generalized); T46.6X5A Adverse effect of antihyperlipidemic and antiarteriosclerotic drugs, initial encounter; F15.288 Other stimulant dependence with other stimulant-induced disorder; I10 Essential (primary) hypertension; E11.9 Type 2 diabetes mellitus without complications; E78.5 Hyperlipidemia, unspecified; F70 Mild intellectual disabilities; F63.81 Intermittent explosive disorder; H91.3 Deaf nonspeaking, not elsewhere classified; K59.09 Other constipation; F32.9 Major depressive disorder, single episode, unspecified; F41.9 Anxiety disorder, unspecified; Q76.1 Klippel-Feil syndrome; Z74.01 Bed confinement status
CPT/HCPCS: 36415; 71046; 74018; 80048; 80053; 81000; 82962; 83605; 83735; 83874; 84484; 85025; 85610; 85730; 87040; 87088; 87804; 93005; 93041; 96361; 96365

== ENCOUNTER 2019-09-06 11:33 | Emergency (ER) | payer MEDICARE, MEDICAID ==
[~2019-09-06] VITALS: Ht 154 cm; Wt 99.7 kg
[~2019-09-06 11:33] MED LIST changes: +SIMV5TAB22; -SIMV5TAB6
[2019-09-06] MEDS ORDERED: DOXY100T2 PO (12:21)
--- NOTE | 2019-09-06 12:23 | ED Integumentary General ---
General Chief Complaint: Skin/Wound Problems Stated Complaint: ABSCESS Source: patient Exam Limitations: no limitations History of Present Illness Date Seen by Provider: Sep 06, 2019 Time Seen by Provider: 12:18 Initial Comments Abscess left groin, seen by Dr. Dr. Hurd today and referred to the emergency room. Timing/Duration: week, getting worse Severity: moderate Possible Cause: no cause identified Associated Symptoms: denies symptoms Allergies and Home Medications Allergies Coded Allergies: No Known Drug Allergies (Unverified , 10/13/18) Patient Home Medication List Home Medication List Reviewed: Yes Review of Systems Review of Systems Constitutional: see HPI; No chills, No fever EENTM: see HPI Respiratory: no symptoms reported Cardiovascular: no symptoms reported Genitourinary: no symptoms reported Musculoskeletal: no symptoms reported Skin: see HPI Psychiatric/Neurological: No Symptoms Reported Endocrine: No Symptoms Reported Past Qyepudm-Atvgqg-Ydwwtb Hx Patient Social History Recent Foreign Travel: No Contact w/Someone Who Travel: No Immunizations Up To Date Tetanus Booster (TDap): Unknown PED Vaccines UTD: Yes Date of Influenza Vaccine: Jul 23, 2018 Seasonal Allergies Seasonal Allergies: No Past Medical History Surgeries: Yes (GALLBLADDER ) Respiratory: No Cardiac: Yes Neurological: Yes (OCD, MODERATE INTELLECTUAL DISABILITIES, KLIPPEL-FEIL SYNDROME) Genitourinary: No Gastrointestinal: Yes Chronic Constipation, Gall Bladder Disease Musculoskeletal: No Endocrine: Yes HEENT: Yes Hearing Impairment: Deaf Cancer: No Psychosocial: Yes (PATIENT IS MENTALLY CHALLENGED, DEAF, AND MUTE) Integumentary: No Blood Disorders: No Adverse Reaction/Blood Tranf: No Physical Exam Vital Signs Capillary Refill : General Appearance: WD/WN, no apparent distress HEENT: PERRL/EOMI, normal ENT inspection Neck: non-tender, full range of motion Respiratory: no respiratory distress, no accessory muscle use Extremities: normal range of motion, non-tender Neurologic/Psychiatric: alert, normal mood/affect, oriented x 3 Skin: normal color, warm/dry Skin Problem Location: other (left mons pubis 3cm fluctuant abscess) Skin Problem Character: abscess Procedures/Interventions I&D : Blade Size: 11 Progress Anesthetized the overlying skin with 1 mL of lidocaine, incision made with 11 blade scalpel. Minimal bloody material expressed. Culture collected and sent to lab. Wound not packed, cavity not large enough to accept packing.. Progress/Results/Core Measures Results/Orders My Orders Orders - KELSEY BAUER APRN Wound Culture (09/06/19 12:16) Sulfamethoxazole/Trimet Ds Tab (Bactrim (09/06/19 12:30) Cephalexin Capsule (Keflex Capsule) (09/06/19 12:30) Departure Impression Primary Impression: Abscess Additional Impressions: Mental developmental delay Deafness Disposition: 01 HOME, SELF-CARE Condition: Stable Departure-Patient Inst. Decision time for Depature: 12:20 Referrals: ROSEMARIE HURD DO (PCP/Family) Primary Care Physician Patient Instructions: Skin Abscess Add. Discharge Instructions: 1. Return to ER for any concerns 2. Use the gauze to collect any drainage that may leak from this in the next few days. Antibiotic as directed. All discharge instructions reviewed with patient and/or family. Voiced understanding. Scripts Doxycycline Hyclate (Doxycycline Hyclate) 100 Mg Tablet 100 MG PO BID, #20 TAB 0 Refills Prov: KELSEY BAUER APRN 09/06/19 KELSEY BAUER APRN Sep 06, 2019 12:23 POS
[2019-09-06] MEDS ORDERED: CEPHALEXIN 250 MG (KEFLEX) CAP PO ONE (12:30)
[2019-09-06] MEDS ORDERED: TRIM/SULFAMETH 160/800 (SEPTRA DS) TAB PO ONE (12:30)
[2019-09-06 12:33] VITALS: BP 105/62
== END 2019-09-06 12:33 | disposition home or self-care (01) ==
LOC: EDUNIT# 11:33 → ER 11:34
DX: L02.214 Cutaneous abscess of groin (principal); F81.9 Developmental disorder of scholastic skills, unspecified; H91.3 Deaf nonspeaking, not elsewhere classified; F42.9 Obsessive-compulsive disorder, unspecified; F79 Unspecified intellectual disabilities
CPT/HCPCS: 87070; 87077; 87186; 87205; 99283

== ENCOUNTER → 2019-11-13 | Outpatient (CLI) | payer MEDICARE, MEDICAID ==
[~2019-11-13] MED LIST changes: +DOXY100T2 PO; +METF500T19; -METF500T8
== END ==
LOC: PREOP 11-07 05:29
PROVIDERS: ATTEND Dentist General Practice
DX: Z01.818 Encounter for other preprocedural examination (principal)